=== PATIENT | female | born 1965 | race Caucasian/White ===

== ENCOUNTER 2017-05-31 22:54 | Emergency (ER) | payer OTHER ==
[~2017-05-31] VITALS: Ht 160 cm; Wt 58.5 kg
--- NOTE | 2017-06-01 00:41 | NUR ---
PT BIBSELF, C/O "HEADACHE X1 WEEK; FEVER TODAY" PT AOX4 RR EVEN AND UNLABORED. NO SOB NOTED. NAD NOTED. NO NVD AT THIS TIME. PT PLACED ON MONITOR. PT WAITING FOR MD EVAL. PT NOT DIAPHORETIC. PT WAITING FOR EVAL.
--- NOTE | 2017-06-01 00:50 | NUR ---
DR. GALVEZ AT BEDSIDE FOR EVAL.
[2017-06-01] MEDS ORDERED: ONDANSETRON HCL/PF - ER 4 MG/2 ML VIAL IV ONE (01:00)
[2017-06-01] MEDS ORDERED: IV NS 0.9% 1,000 ML BAG IV ONE (01:00)
[2017-06-01] MEDS ORDERED: KETOROLAC TROMETHAMINE INJ 30 MG/ML VIAL IV ONE (01:00)
--- NOTE | 2017-06-01 01:16 | NUR ---
CALLED LAB FOR SPECIMEN (URINE, INFLUENZA, STREP) ARCHITECTURAL TECHNICIAN.
[2017-06-01] MEDS ORDERED: ONDANSETRON HCL/PF 4 MG/2 ML VIAL ONE (01:18)
[2017-06-01] MEDS ORDERED: KETOROLAC TROMETHAMINE INJ 30 MG/ML VIAL ONE (01:18)
[2017-06-01 01:24] LABS: BASOPHILS % (AUTO) 0.4 % (0.0-2.0); HEMATOCRIT 41 % (33-45); HEMOGLOBIN 13.4 g/dL (11.5-14.8); LYMPHOCYTES % (AUTO) 15.4 % (20.0-44.0); MEAN CORPUSCULAR HEMOGLOBIN 31 PG (26.0-33.0); MEAN CORPUSCULAR HGB CONC 33 g/dl (31.0-36.0); MEAN CORPUSCULAR VOLUME 93 fL (82-100); MONOCYTES % (AUTO) 4.5 % (2.0-12.0); NEUTROPHILS % (AUTO) 79.7 % (43.0-81.0); PLATELET COUNT (AUTO) 258 /CMM (150-450); RDW COEFFICIENT OF VARIATION 12.7 (11.5-15.0); WHITE BLOOD COUNT (AUTO) 7.4 K/uL (4.3-11.0)
[2017-06-01 01:25] LABS: LYMPHOCYTES # (AUTO) 1.1 /CMM (0.8-4.8); MONOCYTES # (AUTO) 0.3 /CMM (0.1-1.30); NEUTROPHILS # (AUTO) 5.9 /CMM (1.8-8.9)
--- NOTE | 2017-06-01 01:32 | NUR ---
URINE COLLECTED. CALLED LAB FOR CERAMIC COATER MACHINE
[2017-06-01 01:34] LABS: CALCIUM, SERUM 8.8 mg/dL (8.5-10.1); CREATININE 0.9 mg/dL (0.6-1.3); POTASSIUM 3.5 mmol/L (3.5-5.1)
--- NOTE | 2017-06-01 01:37 | NUR ---
PT TO RADIOLOGY FOR CT HEAD VIA WC
[2017-06-01 01:42] LABS: ALBUMIN 4.3 g/dL (3.4-5.0); BILIRUBIN,DIRECT 0.1 mg/dL (0.0-0.2); BILIRUBIN,TOTAL 0.5 mg/dL (0.2-1.0)
--- NOTE | 2017-06-01 01:46 | NUR ---
PT RETURNED FROM CT. PT REFUSED CXR. RISK AND BENEFITS EXPLAINED X3. PT STRONGLY REFUSED.
--- NOTE | 2017-06-01 02:44 | NUR ---
CALLED [facility] FOR F/U CT HEAD PENDING RESULT.
[2017-06-01 02:59] LABS: APPEARANCE,URINE CLEAR (CLEAR); BILIRUBIN,URINE NEGATIVE (NEGATIVE); BLOOD, URINE NEGATIVE Ery/uL (NEGATIVE); KETONES,URINE NEGATIVE (NEGATIVE); LEUKOCYTE ESTERASE ,URINE 1+ (NEGATIVE); NITRITE, URINE NEGATIVE (NEGATIVE); PH,URINE 8.5 (5.0-8.0); PROTEIN,URINE NEGATIVE (NEGATIVE); UGLUCOSE NEGATIVE (NEGATIVE); UROBILINOGEN,URINE 0.2 EU/dL (0.2)
[2017-06-01 03:00] LABS: COLOR,URINE STRAW (YELLOW)
[2017-06-01 03:06] LABS: BACTERIA,URINE None seen /HPF (None Seen); RBC,URINE 0-2 /HPF (0-2); SQUAMOUS EPITHELIAL CELL,UR Rare /HPF (None Seen); WBC,URINE 0-2 /HPF (0-3)
--- NOTE | 2017-06-01 03:18 | NUR ---
DR. GALVEZ AT BEDSIDE SPEAKING TO PT REGARDING RESULTS.
--- NOTE | 2017-06-01 03:22 | NUR ---
IV removed. Catheter intact and site benign. Pressure and 4x4 applied to site. No bleeding noted. Patient discharged to home in stable condition. Written and verbal after care instructions given. Patient verbalizes understanding of instruction. ambulatory with a steady gait. pt accompanied by friend
[2017-06-01 03:23] VITALS: BP 110/68
== END 2017-06-01 03:24 | disposition home or self-care (01) ==
LOC: ER 22:57
DX: B34.9 Viral infection, unspecified (principal); R51 Headache
CPT/HCPCS: 36415; 70450; 80048; 80076; 81001; 85025; 87070; 87086; 87804; 87880; 93005; 96361; 96374; 96375; 99285; A4606; J1885; J2405 ×2; J7030 ×2; Z7610; 81000-TC; 86403-TC; 87400